=== PATIENT | female | born 1960 | race Caucasian/White ===

== ENCOUNTER 2018-10-23 18:10 | Emergency (ER) | payer OTHER ==
[~2018-10-23] VITALS: Ht 180.3 cm; Wt 77.1 kg
[2018-10-23 19:04] VITALS: BP 124/87
[2018-10-23] MEDS ORDERED: TDAP [DIPH/PERTUSSIS/TET] 0.5 ML VIAL IM ONE ×2 (19:17→19:30)
[2018-10-23] MEDS ORDERED: ONDANSETRON 4 MG TAB.RAPDIS ONE (19:17)
[2018-10-23] MEDS ORDERED: MORPHINE SULFATE INJ 4 MG/ML DISP.SYRIN ONE (19:17)
[2018-10-23] MEDS ORDERED: ONDANSETRON 4 MG TAB.RAPDIS PO ONE (19:30)
[2018-10-23] MEDS ORDERED: MORPHINE SULFATE INJ 2 MG/ML DISP.SYRIN IM ONE (19:30)
[2018-10-23] MEDS ORDERED: AMOX/CLAVULANATE 875 MG TABLET PO ONE (20:00)
[2018-10-23] MEDS ORDERED: AMOX/CLAVULANATE 875 MG TABLET ONE (20:10)
== END 2018-10-23 20:30 | disposition home or self-care (01) ==
LOC: ER 18:13
DX: S61.235A Puncture wound without foreign body of left ring finger without damage to nail, initial encounter (principal); S61.237A Puncture wound without foreign body of left little finger without damage to nail, initial encounter; W54.0XXA Bitten by dog, initial encounter; Y93.K1 Activity, walking an animal; Y92.89 Other specified places as the place of occurrence of the external cause; Y99.8 Other external cause status
CPT/HCPCS: 73130; 90471; 90715; 96372; 99283; A6402; A6403; J2270; Q0162

== ENCOUNTER 2018-10-25 10:30 | Emergency (ER) | payer OTHER ==
[~2018-10-25] VITALS: Ht 180.3 cm; Wt 77.1 kg
[2018-10-25 10:43] VITALS: BP 120/73
--- NOTE | 2018-10-25 11:06 | NUR ---
Wound care at [facility].
--- NOTE | 2018-10-28 11:06 | NUR ---
DRESSING CHANGED AND TOPICAL OINTMENT GIVEN. ADDITIONAL SUPPLY GIVEN TO PATIENT PER ER MD ORDER.
== END 2018-10-25 11:07 | disposition home or self-care (01) ==
LOC: ER 10:31
DX: Z48.00 Encounter for change or removal of nonsurgical wound dressing (principal)
CPT/HCPCS: 99283; A6402 ×2